=== PATIENT | male | born 1970 | race Caucasian/White ===

== ENCOUNTER → 2023-02-13 09:48 | Outpatient (BNVA) | payer OTHER, SELFPAY | PROVIDERS: Visit Provider Internal Medicine | DX: S50.11XA Contusion of right forearm, initial encounter (principal); S41.111A Laceration without foreign body of right upper arm, initial encounter; W26.9XXA Contact with unspecified sharp object(s), initial encounter | CPT/HCPCS: 99202 ==

== ENCOUNTER → 2023-02-17 12:52 | Outpatient (BNVA) | payer OTHER, SELFPAY | PROVIDERS: Visit Provider Internal Medicine | DX: S41.111A Laceration without foreign body of right upper arm, initial encounter (principal); W26.9XXA Contact with unspecified sharp object(s), initial encounter; R58 Hemorrhage, not elsewhere classified | CPT/HCPCS: 99213 ==

== ENCOUNTER → 2023-02-21 08:02 | Outpatient (BNVA) | payer OTHER, SELFPAY | PROVIDERS: Visit Provider Internal Medicine | DX: S41.111A Laceration without foreign body of right upper arm, initial encounter (principal); W26.9XXA Contact with unspecified sharp object(s), initial encounter | CPT/HCPCS: 99213 ==